=== PATIENT | female | born 1995 | race Caucasian/White ===

== ENCOUNTER 2017-09-20 09:02 | Emergency (ER) | payer MEDICAID ==
[~2017-09-20] VITALS: Ht 160 cm; Wt 83.0 kg
[2017-09-20 09:05] VITALS: BP 118/71; PULSE 94; RESP 16; TEMP 98.7; O2SAT 98
[2017-09-20] MEDS ORDERED: SODIUM CHLOR 0.9% 1000 ML INJ 1,000 ML IV ONE ×2 (10:15)
[2017-09-20] MEDS ORDERED: ONDANSETRON HCL 4 MG/2 ML VIAL IV PUSH ONE (10:15)
[2017-09-20 10:47] LABS: AUTOMATED NEUTROPHIL # 5.8 TH/MM3 (1.8-7.7); BASOPHIL % 0.2 % (0.0-2.0); EOSINOPHIL # 0.1 TH/MM3 (0-0.4); EOSINOPHIL % 0.6 % (0.0-4.0); HEMATOCRIT 36.9 % (35.0-46.0); HEMOGLOBIN 11.9 GM/DL (11.6-15.3); LYMPHOCYTE # 1.9 TH/MM3 (1.0-4.8); MEAN CELL VOLUME 83.2 FL (80.0-100.0); MEAN CORPUSCULAR HGB CONC 32.4 % (32.0-36.0); MEAN PLATELET VOLUME 7.2 FL (7.0-11.0); MONO % 6.7 % (0.0-8.0); MONOCYTE # 0.6 TH/MM3 (0-0.9); NEUT % 69.5 % (16.0-70.0); PLATELET COUNT 354 TH/MM3 (150-450); RED BLOOD COUNT 4.43 MIL/MM3 (4.00-5.30); RED CELL DISTRIBUTION WIDTH 14.5 % (11.6-17.2); WHITE BLOOD COUNT 8.4 TH/MM3 (4.0-11.0)
[2017-09-20 11:01] LABS: CALCIUM 8.7 MG/DL (8.5-10.1)
[2017-09-20 11:02] LABS: BICARBONATE 21.2 MEQ/L (21.0-32.0)
[2017-09-20 11:05] LABS: CREATININE 0.43 MG/DL (0.50-1.00)
--- NOTE | 2017-09-20 11:26 | PD ---
HPI Chief Complaint: GI Complaint Time Seen by Provider: 10:07 Travel History International Travel<30 days: No Contact w/Intl Traveler<30days: No Traveled to known affect area: No History of Present Illness HPI This 21-year-old female complaining of vomiting diarrhea and abdominal pain. SHe is currently about 36 weeks. The pain she is having this crampy pain. Does not feel like labor pain to her. She has had a one previous . There has not been any vaginal bleeding PFSH Past Medical History Diabetes: Yes (gestational diabetes) Patient Takes Glucophage: No Influenza Vaccination: No ?: LMP: 01/16/17 Para: 1 Past Surgical History Surgical History: No Previous Surgery Section: Yes Social History Alcohol Use: No Tobacco Use: No Substance Use: No Allergies-Medications (Allergen,Severity, Reaction): Coded Allergies: amoxicillin (Verified Allergy, Severe, Anaphylaxis, 09/20/17) Reported Meds & Prescriptions Reported Meds & Active Scripts Active No Active Prescriptions or Reported Medications Review of Systems Except as stated in HPI: all other systems reviewed are Neg General / Constitutional: No: Fever, Chills Respiratory: No: Cough Gastrointestinal: Positive: Vomiting, Diarrhea, Abdominal Pain Genitourinary: Positive: Vaginal Bleeding Physical Exam Narrative GENERAL: Well-developed female SKIN: Focused skin assessment warm/dry. HEAD: Atraumatic. Normocephalic. EYES: Pupils equal and round. No scleral icterus. No injection or drainage. ENT: No nasal bleeding or discharge. Mucous membranes pink and moist. NECK: Trachea midline. No JVD. CARDIOVASCULAR: Regular rate and rhythm. No murmur appreciated. RESPIRATORY: No accessory muscle use. Clear to auscultation. Breath sounds equal bilaterally. GASTROINTESTINAL: Abdomen soft, uterus palpable just below the rib cage and soft MUSCULOSKELETAL: No obvious deformities. No clubbing. No cyanosis. No edema. NEUROLOGICAL: Awake and alert. No obvious cranial nerve deficits. Motor grossly within normal limits. Normal speech. PSYCHIATRIC: Appropriate mood and affect; insight and judgment normal. Data Data Last Documented VS Vital Signs Date Time Temp Pulse Resp B/P (MAP) Pulse Ox O2 Delivery O2 Flow Rate FiO2 09/20/17 09:05 98.7 94 16 118/71 (87) 98 Orders Orders Urinalysis - C+S If Indicated (09/20/17 09:06) Complete Blood Count With Diff (09/20/17 10:12) Basic Metabolic Panel (Bmp) (09/20/17 10:12) Sodium Chlor 0.9% 1000 Ml Inj (Ns 1000 M (09/20/17 10:15) Sodium Chlor 0.9% 1000 Ml Inj (Ns 1000 M (09/20/17 10:15) Ondansetron Inj (Zofran Inj) (09/20/17 10:15) Labs Laboratory Tests Test 09/20/17 10:20 09/20/17 12:10 White Blood Count 8.4 TH/MM3 Red Blood Count 4.43 MIL/MM3 Hemoglobin 11.9 GM/DL Hematocrit 36.9 % Mean Corpuscular Volume 83.2 FL Mean Corpuscular Hemoglobin 27.0 PG Mean Corpuscular Hemoglobin Concent 32.4 % Red Cell Distribution Width 14.5 % Platelet Count 354 TH/MM3 Mean Platelet Volume 7.2 FL Neutrophils (%) (Auto) 69.5 % Lymphocytes (%) (Auto) 23.0 % Monocytes (%) (Auto) 6.7 % Eosinophils (%) (Auto) 0.6 % Basophils (%) (Auto) 0.2 % Neutrophils # (Auto) 5.8 TH/MM3 Lymphocytes # (Auto) 1.9 TH/MM3 Monocytes # (Auto) 0.6 TH/MM3 Eosinophils # (Auto) 0.1 TH/MM3 Basophils # (Auto) 0.0 TH/MM3 CBC Comment DIFF FINAL Differential Comment Blood Urea Nitrogen 6 MG/DL Creatinine 0.43 MG/DL Random Glucose 99 MG/DL Calcium Level 8.7 MG/DL Sodium Level 138 MEQ/L Potassium Level 3.7 MEQ/L Chloride Level 109 MEQ/L Carbon Dioxide Level 21.2 MEQ/L Anion Gap 8 MEQ/L Estimat Glomerular Filtration Rate 184 ML/MIN Urine Collection Type VOIDED Urine Color YELLOW Urine Turbidity CLEAR Urine pH 6.5 Urine Specific [place] 1.025 Urine Protein TRACE mg/dL Urine Glucose (UA) NEG mg/dL Urine Ketones NEG mg/dL Urine Occult Blood NEG Urine Nitrite NEG Urine Bilirubin NEG Urine Urobilinogen 0.2 MG/DL Urine Leukocyte Esterase TRACE Urine WBC 3-5 /hpf Urine Squamous Epithelial Cells 0-3 /hpf Urine Transitional Epithelial Cells OCC /hpf Urine Mucus RARE /lpf Microscopic Urinalysis Comment CULT NOT INDICATED MDM Medical Decision Making Medical Screen Exam Complete: Yes Emergency Medical Condition: Yes Differential Diagnosis Differential includes gastroenteritis, dehydration Narrative Course She has been given IV fluids with a been of her symptoms. He is stable for discharge Diagnosis Primary Impression: Acute gastroenteritis Scripts Ondansetron Odt (Zofran Odt) 4 Mg Tab 4 MG SL Q6HR Y for Nausea/Vomiting, #10 TAB 0 Refills Prov: Everett Reed MD 09/20/17 Disposition: 01 DISCHARGE HOME Condition: Stable Everett Reed MD Sep 20, 2017 11:26
[2017-09-20 12:18] LABS: BILIRUBIN, URINE NEG (NEG); BLOOD, URINE NEG (NEG); GLUCOSE,URINE NEG (NEG); KETONE, URINE NEG (NEG); NITRITE,URINE NEG (NEG); PH, URINE 6.5 (5.0-8.5); URINE COLOR YELLOW (YELLW/STRAW); URINE LEUKOCYTE ESTERASE TRACE (NEG)
[2017-09-20 12:28] LABS: MUCUS URINE RARE /lpf (OCC); SQUAMOUS EPITHELIAL CELL URINE 0-3 /hpf (0-5); TRANSITIONAL EPI CELLS, URINE OCC /hpf
[2017-09-20] MEDS ORDERED: ZOFR4TAB3 SL (12:44)
[2017-09-20 12:56] VITALS: BP 109/72
== END 2017-09-20 13:09 | disposition home or self-care (01) ==
LOC: PHED 09:02
DX: O26.893 Other specified pregnancy related conditions, third trimester (principal); K52.9 Noninfective gastroenteritis and colitis, unspecified; O24.913 Unspecified diabetes mellitus in pregnancy, third trimester; Z88.0 Allergy status to penicillin; Z3A.36 36 weeks gestation of pregnancy
CPT/HCPCS: 80048; 81001; 85025; 96361; 96374; 99284; J2405; J7030

== ENCOUNTER 2017-09-24 22:54 | Emergency (ER) | payer MEDICAID ==
[~2017-09-24] VITALS: Ht 160 cm; Wt 83.6 kg
[~2017-09-24 22:54] MED LIST: ZOFR4TAB3 SL
[2017-09-24 23:03] VITALS: BP 120/83; PULSE 100; RESP 18; TEMP 96.9; O2SAT 97
--- NOTE | 2017-09-24 23:53 | PD ---
HPI Chief Complaint: N/V/D Time Seen by Provider: 23:51 Travel History International Travel<30 days: No Contact w/Intl Traveler<30days: No Traveled to known affect area: No History of Present Illness HPI Patient gives history of onset of nausea vomiting and diarrhea since about 2:00 PM today after eating a burger. Patient thus far does not know if the patient if anybody else has had any sickness or illnesses from this. Patient rates the nausea and vomiting and diarrhea although not painful rates it at about 7-8 out of 10 in severity. And has started to feel lightheaded and dizzy as a result of continuously having vomiting and diarrhea. States allergy to amoxicillin States past medical history significant for gestational diabetes, . Patient is a , she is about 38 weeks gestational age, and her [employer] is in [facility] Past Medical History Diabetes: Yes (gestational diabetes) Para: 1 Past Surgical History Section: Yes Social History Alcohol Use: No Tobacco Use: No Substance Use: No Allergies-Medications (Allergen,Severity, Reaction): Coded Allergies: amoxicillin (Verified Allergy, Severe, Anaphylaxis, 09/20/17) Reported Meds & Prescriptions Reported Meds & Active Scripts Active Reglan (Metoclopramide HCl) 10 Mg Tab 10 Mg PO TIDAC Zofran Odt (Ondansetron Odt) 4 Mg Tab 4 Mg SL Q6HR PRN Zofran Odt (Ondansetron Odt) 4 Mg Tab 4 Mg SL Q6HR PRN Review of Systems General / Constitutional: No: Fever Eyes: No: Visual changes HENT: No: Headaches Cardiovascular: No: Chest Pain or Discomfort Respiratory: No: Shortness of Breath Gastrointestinal: Positive: Nausea, Vomiting, Diarrhea Genitourinary: No: Dysuria Musculoskeletal: No: Pain Skin: No Rash Neurologic: No: Weakness Psychiatric: No: Depression Endocrine: No: Polydipsia Hematologic/Lymphatic: No: Easy Bruising Physical Exam Narrative GENERAL: SKIN: Warm and dry. HEAD: Atraumatic. Normocephalic. EYES: Pupils equal and round. No scleral icterus. No injection or drainage. ENT: No nasal bleeding or discharge. Mucous membranes pink and moist. NECK: Trachea midline. No JVD. CARDIOVASCULAR: Regular rate and rhythm. RESPIRATORY: No accessory muscle use. Clear to auscultation. Breath sounds equal bilaterally. GASTROINTESTINAL: Abdomen soft, non-tender, nondistended. Gravid abdomen consistent with full-term. No palpable contractions felt. MUSCULOSKELETAL: Extremities without clubbing, cyanosis, or edema. No obvious deformities. NEUROLOGICAL: Awake and alert. No obvious cranial nerve deficits. Motor grossly within normal limits. Five out of 5 muscle strength in the arms and legs. Normal speech. PSYCHIATRIC: Appropriate mood and affect; insight and judgment normal. Data Data Last Documented VS Vital Signs Date Time Temp Pulse Resp B/P (MAP) Pulse Ox O2 Delivery O2 Flow Rate FiO2 09/24/17 23:03 96.9 100 18 120/83 (95) 97 Orders Orders Complete Blood Count With Diff (09/25/17 00:00) Comprehensive Metabolic Panel (09/25/17 00:00) Lipase (09/25/17 00:00) Iv Access Insert/Monitor (09/25/17 00:00) Ecg Monitoring (09/25/17 00:00) Oximetry (09/25/17 00:00) NPO (09/25/17 00:00) Ondansetron Inj (Zofran Inj) (09/25/17 00:00) Sodium Chlor 0.9% 1000 Ml Inj (Ns 1000 M (09/25/17 00:00) Sodium Chloride 0.9% Flush (Ns Flush) (09/25/17 00:00) Labs Laboratory Tests Test 09/25/17 00:15 White Blood Count 9.2 TH/MM3 Red Blood Count 4.65 MIL/MM3 Hemoglobin 12.7 GM/DL Hematocrit 38.5 % Mean Corpuscular Volume 82.7 FL Mean Corpuscular Hemoglobin 27.3 PG Mean Corpuscular Hemoglobin Concent 33.0 % Red Cell Distribution Width 14.7 % Platelet Count 410 TH/MM3 Mean Platelet Volume 7.3 FL Neutrophils (%) (Auto) 66.8 % Lymphocytes (%) (Auto) 23.7 % Monocytes (%) (Auto) 8.6 % Eosinophils (%) (Auto) 0.6 % Basophils (%) (Auto) 0.3 % Neutrophils # (Auto) 6.1 TH/MM3 Lymphocytes # (Auto) 2.2 TH/MM3 Monocytes # (Auto) 0.8 TH/MM3 Eosinophils # (Auto) 0.1 TH/MM3 Basophils # (Auto) 0.0 TH/MM3 CBC Comment DIFF FINAL Differential Comment Blood Urea Nitrogen 9 MG/DL Creatinine 0.49 MG/DL Random Glucose 85 MG/DL Albumin 2.7 GM/DL Calcium Level 9.2 MG/DL Aspartate Amino Transf (AST/SGOT) 9 U/L Alanine Aminotransferase (ALT/SGPT) 17 U/L Sodium Level 136 MEQ/L Potassium Level 3.6 MEQ/L Chloride Level 105 MEQ/L Carbon Dioxide Level 22.8 MEQ/L Anion Gap 8 MEQ/L Estimat Glomerular Filtration Rate 157 ML/MIN Lipase 118 U/L [facility] Medical Decision Making Medical Screen Exam Complete: Yes Emergency Medical Condition: Yes Medical Record Reviewed: Yes Differential Diagnosis Viral gastroenteritis versus bacterial gastroenteritis versus food poisoning versus pancreatitis versus hepatitis Narrative Course CBC shows no leukocytosis, no anemia, normal platelet count, no left shift. Electrolytes are all within normal limits, normal kidney liver and pancreatic functions. Diagnosis Primary Impression: Food poisoning Additional Impression: Dehydration Patient Instructions: Dehydration (ED), Food Poisoning (ED), Full Liquid Diet ( DC) Scripts Metoclopramide (Reglan) 10 Mg Tab 10 MG PO TIDAC, #10 TAB 0 Refills Prov: Daniel Glez MD 09/24/17 Ondansetron Odt (Zofran Odt) 4 Mg Tab 4 MG SL Q6HR Y for Nausea/Vomiting, #12 TAB 0 Refills Prov: Daniel Glez MD 09/24/17 Disposition: 01 DISCHARGE HOME Condition: Stable Daniel Glez MD Sep 24, 2017 23:52
[2017-09-24] MEDS ORDERED: ZOFR4TAB3 SL (23:59)
[2017-09-24] MEDS ORDERED: REGL10TA5 PO (23:59)
[2017-09-25] MEDS ORDERED: ONDANSETRON HCL 4 MG/2 ML VIAL IVP ONE
[2017-09-25] MEDS ORDERED: SODIUM CHLOR 0.9% 1000 ML INJ 1,000 ML IV SCH
[2017-09-25] MEDS ORDERED: SODIUM CHLORIDE 0.9% FLUSH 10 ML FLUSH IV FLUSH PRN
[2017-09-25 00:30] VITALS: BP 108/72; PULSE 94; RESP 18; O2SAT 100
[2017-09-25 00:38] LABS: AUTOMATED NEUTROPHIL # 6.1 TH/MM3 (1.8-7.7); BASOPHIL % 0.3 % (0.0-2.0); EOSINOPHIL # 0.1 TH/MM3 (0-0.4); EOSINOPHIL % 0.6 % (0.0-4.0); HEMATOCRIT 38.5 % (35.0-46.0); HEMOGLOBIN 12.7 GM/DL (11.6-15.3); LYMPH % 23.7 % (9.0-44.0); LYMPHOCYTE # 2.2 TH/MM3 (1.0-4.8); MEAN CELL VOLUME 82.7 FL (80.0-100.0); MEAN CORPUSCULAR HEMOGLOBIN 27.3 PG (27.0-34.0); MEAN PLATELET VOLUME 7.3 FL (7.0-11.0); MONO % 8.6 % (0.0-8.0); MONOCYTE # 0.8 TH/MM3 (0-0.9); NEUT % 66.8 % (16.0-70.0); PLATELET COUNT 410 TH/MM3 (150-450); RED BLOOD COUNT 4.65 MIL/MM3 (4.00-5.30); RED CELL DISTRIBUTION WIDTH 14.7 % (11.6-17.2); WHITE BLOOD COUNT 9.2 TH/MM3 (4.0-11.0)
[2017-09-25 00:45] LABS: CHLORIDE 105 MEQ/L (98-107); SODIUM (NA) 136 MEQ/L (136-145)
[2017-09-25 00:49] LABS: ALBUMIN 2.7 GM/DL (3.4-5.0); BICARBONATE 22.8 MEQ/L (21.0-32.0); CALCIUM 9.2 MG/DL (8.5-10.1); GLUCOSE,RANDOM 85 MG/DL (74-106)
[2017-09-25 00:50] LABS: BLOOD UREA NITROGEN 9 MG/DL (7-18)
[2017-09-25 00:52] LABS: ALT (GPT) 17 U/L (10-53); AST (GOT) 9 U/L (15-37); CREATININE 0.49 MG/DL (0.50-1.00); GLOMERULAR FILTRATION RATE 157 ML/MIN (>89)
[2017-09-25 00:54] LABS: TOTAL BILIRUBIN ADULT 0.2 MG/DL (0.2-1.0); TOTAL PROTEIN 7.4 GM/DL (6.4-8.2)
[2017-09-25 00:55] LABS: ALKALINE PHOSPHATASE 232 U/L (45-117)
[2017-09-25 01:45] VITALS: BP 105/61; PULSE 88; RESP 18; O2SAT 100
== END 2017-09-25 01:59 | disposition home or self-care (01) ==
LOC: PHED 22:54
DX: O9A.213 Injury, poisoning and certain other consequences of external causes complicating pregnancy, third trimester (principal); T62.91XA Toxic effect of unspecified noxious substance eaten as food, accidental (unintentional), initial encounter; R11.2 Nausea with vomiting, unspecified; R19.7 Diarrhea, unspecified; O99.283 Endocrine, nutritional and metabolic diseases complicating pregnancy, third trimester; E86.0 Dehydration; O24.419 Gestational diabetes mellitus in pregnancy, unspecified control; Z3A.38 38 weeks gestation of pregnancy
CPT/HCPCS: 80053; 83690; 85025; 96374; 99284; J2405; J7030